=== PATIENT | female | born 1940 | race Caucasian/White ===

== ENCOUNTER 2023-05-02 03:18 | Inpatient (IN) | payer OTHER, SELFPAY ==
[2023-05-02] VITALS (14 sets, daily range): BP systolic 109–159; BP diastolic 53–100; PULSE 85–90; BMI 27.0; BMI 28.4
[2023-05-02 01:40] LABS: Urine Albumin Negative (Neg - Trace); Urine Bilirubin Negative (Negative); Urine Character Clear (Clear); Urine Color Yellow; Urine Glucose Trace (Negative); Urine Ketone Negative (Negative); Urine Leukocyte Negative (Negative); Urine Nitrite Negative (Negative); Urine Occult Blood Negative (Negative); Urine Urobilinogen Negative (Neg - 1+)
[2023-05-02 01:43] LABS: % Basophils 0.3 % (0-2); % Eosinophils 0.1 % (0-6); % Immature Granulocytes 0.8 % (0-0.5); % Lymphocytes 4.2 % (20.5-51.1); % Monocytes 8.7 % (1.7-9.3); % Neutrophils 85.9 % (42.2-75.2); Absolute Immature Granulocytes 0.1 10^3/uL (0-0.05); Absolute Lymphocytes 0.6 10^3/uL (1.2-3.4); Absolute Monocytes 1.2 10^3/uL (0.1-0.6); Absolute Neutrophils 11.8 10^3/uL (1.4-6.5); Hematocrit 37.1 % (37.0-47.0); Hemoglobin 13.8 g/dL (12.0-16.0); Mean Corp Hgb Conc. 37.2 g/dL (33.0-37.0); Mean Corpuscular Hgb 31.5 pg (27.0-31.0); Mean Corpuscular Volume 84.7 fL (81.0-99.0); Mean Platelet Volume 9.9 fL (7.4-10.4); Nucleated Red Blood Cells % 0 %; Platelet Count 247 10^3/uL (130-400); Red Blood Cell Count 4.38 10^6/uL (4.20-5.40); Red Cell Dist. Width 12.9 % (11.5-14.5); White Blood Cell Count 13.7 10^3/uL (4.8-10.8)
[2023-05-02 01:56] LABS: ALT (SGPT) 22 U/L (0-35); AST (SGOT) 31 U/L (14-36); Albumin 3.4 g/dl (3.5-5.0); Alkaline Phosphatase 79 U/L (38-126); Blood Urea Nitrogen 35 mg/dl (7-17); Calcium 10.1 mg/dl (8.4-10.2); Carbon Dioxide 33 mmol/L (22-30); Chloride 81 mmol/L (98-107); Estimated Creatinine Clearance 54 ml/min; Glucose 240 mg/dl (70-99); Potassium 3.4 mmol/L (3.5-5.1); Sodium 121 mmol/L (135-145); Total Bilirubin 1.3 mg/dl (0.2-1.3); Total Protein 6.3 g/dl (6.3-8.2); eGFR > 60.00
[2023-05-02 02:08] LABS: Troponin I 0.014 ng/ml
--- NOTE | 2023-05-02 02:23 | ED.GENMED ---
History of Present Illness
General
Chief Complaint: Weakness
Source: patient and spouse
Exam Limitations: none
Time Seen by Provider: 05/02/23 02:13
Travel History
Have you had any contact with someone who has COVID-19?: No
Do you have any symptoms of coronavirus? Fever > 100 degrees, chills, cough, shortness of breath, sore throat, loss of taste or smell, muscle aches, or headache?: No
History of Present Illness
History of Present Illness:
See MDM
Past History
Past History
ED Past Medical History: Arrthythmia (Atrial fibrillation), CAD, Cancer, GERD, HTN, Hypercholesterolemia, NIDDM, Hypothyroidism, Other (Degenerative disc disease, restless leg syndrome, gout, hyperactive bladder, pulmonary hypertension, benign
positional vertigo, and NSTEMI, cataracts) and Other (Lower GI bleed with ischemic colitis)
ED Past Surgical History: Brain and Cardiac
Social History
Tobacco: Non-smoker
Alcohol: None
Drug: None
Personal:
Living: with family
Employment: Retired
Family History
Family History: Other (Noncontributory)
Phy Exam
Physical Exam
Physical Exam:
See MDM
Course
Orders/Labs/Results
Orders:
Orders
05/02/23 01:25
EKG [Electrocardiogram (*1)] Urgent
Reason for Study: Fatigue / Weakness
05/02/23 01:26
EKG- Treatment ONCE
05/02/23 01:28
Urinalysis Reflex To Culture Urgent
Date Specimen was Collected: 05/02/23
Time Specimen was Collected: 01:26
05/02/23 01:30
Complete Blood Count/With Diff Urgent
Comprehensive Metabolic Panel Urgent
05/02/23 01:33
Troponin I Urgent
05/02/23 02:25
Add On- LAB Urgent
Tests Added?: Urine Na, Urine Osm
0.9% Sodium Chloride 1000 ml [Nss] 1,000 ml IV BOLUS
Abnormal Lab Results
05/02/23 05/02/23
01: 01:30
WBC 13.7 H 10^3/uL
(4.8-10.8)
MCH 31.5 H pg
(27.0-31.0)
MCHC 37.2 H g/dL
(33.0-37.0)
Abs Immat Gran (auto) 0.1 H 10^3/uL
(0-0.05)
Absolute Neuts (auto) 11.8 H 10^3/uL
(1.4-6.5)
Absolute Lymphs (auto) 0.6 L 10^3/uL
(1.2-3.4)
Absolute Monos (auto) 1.2 H 10^3/uL
(0.1-0.6)
Immature Gran % 0.8 H %
(0-0.5)
Neutrophils % 85.9 H %
(42.2-75.2)
Lymphocytes % 4.2 L %
(20.5-51.1)
Sodium 121 L mmol/L
(135-145)
Potassium 3.4 L mmol/L
(3.5-5.1)
Chloride 81 L mmol/L
(98-107)
Carbon Dioxide 33 H mmol/L
(22-30)
BUN 35 H mg/dl
(7-17)
Glucose 240 H mg/dl
(70-99)
Albumin 3.4 L g/dl
(3.5-5.0)
Urine Glucose Trace A
(Negative)
05/02/23 01:30
05/02/23 01:30
Vital Signs
Initial and Last Documented VS:
Initial Vital Signs
BP
159/91
05/02/23 01:07
Last Documented Vital Signs
Temp Pulse Resp BP Pulse Ox
97.6 F 79 14 159/91 97
05/02/23 01:12 05/02/23 02:00 05/02/23 02:00 05/02/23 01:12 05/02/23 02:00
MDM/Problems Addressed
Differential Diagnosis Includes:
HPI and MDM Narrative:
82-year-old female presenting for evaluation of generalized weakness and fatigue. Her spouse at bedside states this has been ongoing for the past several days to weeks. He is concerned about possible UTI.
Patient sitting in bed comfortably. She does appear somewhat confused. There is no evidence of trauma. Patient is clinically dehydrated. Patient found to have sodium level of 121. Given evidence of dehydration, will hydrate with normal saline
Physical exam
General: Weak and fatigued
HEENT: protecting airway. Dry mucous membranes
Neck: appears supple
CV: No evidence of cyanosis. Regular rate, irregular rhythm
Resp: No accessory muscle use
Abd: Non-distended
Extremities: No deformities
Neuro: alert
Psych: Normal affect
Skin: Intact
Problems Addressed including Acute and Chronic Conditions affecting care:
1. Hyponatremia
Acuity: acute
Prognosis: unstable
Details: Likely in the setting of dehydration. Given that she is clinically dehydrated, will start IV fluid
Updates
Differential Diagnosis (but not limited to): UTI, dehydration
Testing considered: CT head but no trauma noted
Drug therapy (if applicable): OTC meds, please see d/c instruction regarding Rx drugs
Amount and/or Complexity of Data Reviewed
Clinical info obtained from: Patient
External data reviewed: N/A
Labs I independently reviewed (but not limited to): Sodium 121
Radiology: N/A
Pulse Ox: not hypoxic
EKG independently reviewed: A-fib, normal axis, no STEMI
Safety Consultant: Sinus rhythm
Critical Care: N/A
Risk of Complication:
Social Determinants of health: Good social support
Discussed with other providers: N/A
Escalation of Care includes Admit/Obs: Given the dehydration and hyponatremia, will admit
Occasional wrong word or 'sound a like' substitutions may have occurred due to the inherent limitations of voice recognition software. Read the chart carefully and recognize, using context, where substitutions have occurred.
*Critical Care Note
Total Time (30-74mins, 75-104mins- exclusive of procedures): Not Applicable
ED Attending Note
-
Portions of this chart may have been created with voice recognition software.� Occasional wrong word or��sound alike� substitutions may have occurred due to the inherent limitations of voice recognition software.
Discharge Plan
Departure
Patient Disposition: Admit
Date of Disposition: 05/02/23
Time of Disposition: 02:30
Admit to: Telemetry
Presentation/result/management discussed w/ accepting MD/DO: Hospitalist
Discharge Problem:
Hypokalemia, Acute hyponatremia, Hypovolemia
Prescriptions:
No Action
lisinopril 20 MG tablet
40 mg PO DAILY
famotidine 40 MG tablet
40 mg PO HS
warfarin [Jantoven] 2.5 MG tablet
2.5 mg PO SUMOWEFRSA
warfarin [Jantoven] 1.25 MG tablet
1.25 mg PO TUTH
potassium chloride [Klor-Con M20] 20 MEQ tablet,ER particles/crystals
20 meq PO DAILY@1200
levothyroxine 50 MCG tablet
50 mcg PO DAILY
cephalexin 500 MG capsule
500 mg PO TID
hydrochlorothiazide 25 MG tablet
25 mg PO DAILY
cholecalciferol (vitamin D3) 1,000 UNITS tablet
1,000 units PO BID
Lactobac 2-Bifido 1-S. therm [High Potency Probiotic] 1 CAP capsule
1 cap PO DAILY@1200
multivitamin with folic acid [Tab-A-Sadaf] 1 TABLET tablet
1 tab PO DAILY@1200
vit C,R-Qg-qfqym-lutein-zeaxan [PreserVision AREDS-2] 1 EACH capsule
1 cap PO BID
metoprolol succinate 50 MG tablet extended release 24 hr
50 mg PO BID
digoxin 0.125 MG tablet
0.125 mg PO NOON
Referrals:
Rony Castillo MD [Family Provider] -
Interventions
Interventions:
*Risk Screen - Suicide Last Done: 05/02/23 01:12
*General Assessment Last Done: 05/02/23 01:12
*Neglect/Abuse Screening Last Done: 05/02/23 01:12
ED- Fall Risk Assessment Last Done: 05/02/23 01:12
*ED COVID-19 Vaccine History Last Done: 05/02/23 01:12
ED- Cardiac Assessment Last Done: 05/02/23 01:12
ED- Neurological Assessment Last Done: 05/02/23 01:12
ED- Pulmonary Assessment Last Done: 05/02/23 01:12
--- NOTE | 2023-05-02 02:58 | HPS.HSE ---
Family Physician
-
Family Physician: Rony Castillo
Chief Complaint
-
Weakness
History of Present Illness
Patient is an 82y F with PMH significant for A-Fib, hypertension and hypothyroidism who presents to ED for evaluation of weakness and fatigue. History obtained from patient and discussion with ED staff. reported to ED staff that patient
has been more weak and fatigued for the past week or two. He is concerned with possible UTI. Patient evaluated in the ED where she is noted to have hyponatremia.
At the time of my examination, patient is resting comfortably./ She appears somewhat confused and cannot recall precisely why she is here. She denies any current pain, chest pain, dyspnea, etc.
External record reviewed with patient. She confirms that she was started on Cipro on 04/29 - also for concerns for possible UTI. She states that she has also been 'drinking a lot of water' as directed by her PCP. She cannot quantify how much water
she has been drinking.
Patient also had similar presentation in March of this year and was similarly prescribed abx and advised to 'push fluids'.
Medical History
Past Medical History
Past Medical History: Reports Other
Additional Past Medical History:
Permanent Atrial Fibrillation
Hypertension
DM-II, Diet-Controlled
CKD II
Subdural Hematoma
ASCVD
Pulmonary Hypertension
Past Surgical History: Reports Other
Additional Past Surgical History:
Tubal Ligation
Appendectomy
PVI Ablation
DCCV
Retina repair
Cataracts
Social History
Tobacco: Non-smoker
Alcohol: None
Drug: None
Family History
Family History: Not pertinent
Allergies / Home Medications
Allergies reflects when Allergies were last updated in [facility].
Home Medications with original date entered in [facility]
Allergy/Medication List:
Allergies
Allergy/AdvReac Type Severity Reaction Status Date / Time
No Known Allergies Allergy Verified 05/02/23 01:11
Home Medications
Lactobac no.2-Bifidobac no.1-S. thermo 112.5 billion cell capsule (High Potency Probiotic) 1 cap PO DAILY@1200 Gastrointestinal issue 08/03/20
digoxin 125 mcg (0.125 mg) tablet 0.125 mg PO NOON Heart disease/condition 08/03/20
famotidine 40 mg tablet 40 mg PO HS Gastrointestinal issue 08/03/20
hydrochlorothiazide 25 mg tablet 25 mg PO DAILY Blood pressure 08/03/20
levothyroxine 50 mcg tablet 50 mcg PO DAILY Thyroid 08/03/20
metoprolol succinate 50 mg tablet,extended release 24 hr 50 mg PO BID Heart disease/condition 08/03/20
potassium chloride 20 mEq tablet,extended release(part/cryst) (Klor-Con M) 20 meq PO DAILY@1200 Electrolyte Repletion 08/03/20
vit C 250 mg-vit E 90 mg-zinc 40 mg-copper 1 bh-lplwxe-bqifxe capsule (PreserVision AREDS-2) 1 cap PO BID Supplement 08/03/20
apixaban 5 mg tablet (Eliquis) 5 mg PO BID 05/02/23
cholecalciferol (vitamin D3) 50 mcg (2,000 unit) tablet 50 mcg PO DAILY 05/02/23
ciprofloxacin HCl 500 mg tablet (Cipro) 500 mg PO BID 05/02/23
lisinopril 40 mg tablet 40 mg PO DAILY 05/02/23
Review of Systems
-
History Source: Patient
A 12 point ROS was completed and negative except as noted: Yes
Constitutional: Reports Fatigue; Denies Fever or Chills
Respiratory: Denies Cough or Trouble Breathing
Cardiac: Denies Chest Pain or Palpitations
Abdomen/GI: Denies Abdominal Pain, Nausea, Vomiting or Diarrhea
: Denies Dysuria, Frequency, Flank Pain or Incontinence
Neurological: Denies Dizzy or Headache
Psych: Denies Depression or Anxiety
Physical Exam
Vital Signs
Vital Signs
Temp Pulse Resp BP Pulse Ox
97.6 F 79 14 159/91 97
05/02/23 01:12 05/02/23 02:00 05/02/23 02:00 05/02/23 01:12 05/02/23 02:00
Physical Exam
General: Other (82y F in no acute distress.)
HEENT: Moist mucous membranes and PERRLA
Respiratory: Clear; No Wheezes, Rales or Rhonchi
Cardiac: S1/S2 and Irregular Rhythm; No Murmur
GI: Soft, Non Tender, Non Distended and Normal Bowel Sounds
Musculoskeletal: No Clubbing, No Cyanosis and No Edema
Skin: Other (Chronic venous stasis skin changes b/l LEs.)
Neuro: Awake and Alert
Psych: Apparent Dementia
Laboratory Results
-
05/02/23 01:30
05/02/23 01:30
Laboratory Results
Total Bilirubin 1.3 mg/dl (0.2-1.3) 05/02/23 01:30
AST 31 U/L (14-36) 05/02/23 01:30
ALT 22 U/L (0-35) 05/02/23 01:30
Alkaline Phosphatase 79 U/L (38-126) 05/02/23 01:30
Troponin I 0.014 ng/ml 05/02/23 01:33
Impression/Plan
-
A/P: Patient is an 82y F with PMH significant for hypertension, A-Fib, DM and hypothyroidism who presents to ED for evaluation of generalized weakness and fatigue.
Hyponatremia
- Admit for further evaluation and treatment.
- Na on admission is 121 with vague symptoms of weakness / fatigue.
- Suspect this is secondary to combination of thiazide diuretic and recent increase in water intake.
- Hold HCTZ and would consider complete cessation.
- Fluid restrict.
- Follow for improvement in Na levels and for improvement in mentation / fatigue.
- Follow-up urine studies to confirm.
- Nephrology evaluation.
- Check TFTs, cortisol, etc.
Weakness / Fatigue
Confusion
- Follow for improvement coincident with Na correction as noted above.
- Suspicious of underlying dementia diagnosis here - especially with multiple UTI diagnoses for generalized weakness in the past 2 months.
- Hold further abx for now. UA today is unremarkable. Monitor for any specific urinary complaints.
Permanent Atrial Fibrillation
- Stable. Rate controlled on current regimen.
- Continue Toprol with holding parameters. Continue Digoxin.
- Continue Eliquis for stroke risk reduction.
DM-II
- Glucose somewhat elevated on initial labs. Patient not on any DM medications at present.
- Follow glucose and cover with SSI as needed.
- Update A1C.
Hypothyroidism
- Check TFTs to ensure current replacement dose is appropriate.
Mild Hypokalemia
- Also likely secondary to HCTZ.
- Continue PO replacement for now.
- Consider cessation of HCTZ and KCl moving forward.
DVT Prophylaxis: On Eliquis
Code Status: Full
[2023-05-02 03:49] LABS: Urine Sodium 17 mmol/L (30-90)
[2023-05-02 04:43] LABS: Osmolality Urine 346 mOsm/kg (300-900)
[2023-05-02] MEDS: SYNTHROID 50 MCG PO (05:51)
[2023-05-02 07:20] LABS: Glucose - Point of Care 229 mg/dl (70-99)
[2023-05-02] MEDS: VITAMIN D3 (cholecalciferol) 50 MCG PO (08:18)
[2023-05-02] MEDS: ELIQUIS 5 MG PO ×2 (08:18→20:20)
[2023-05-02] MEDS: ZESTRIL 40 MG PO (08:18)
[2023-05-02] MEDS: TOPROL XL 50 MG PO (08:19)
[2023-05-02 08:24] LABS: Hematocrit 34.4 % (37.0-47.0); Hemoglobin 12.8 g/dL (12.0-16.0); Mean Corp Hgb Conc. 37.2 g/dL (33.0-37.0); Mean Corpuscular Hgb 31.8 pg (27.0-31.0); Mean Corpuscular Volume 85.4 fL (81.0-99.0); Mean Platelet Volume 10.3 fL (7.4-10.4); Platelet Count 251 10^3/uL (130-400); Red Blood Cell Count 4.03 10^6/uL (4.20-5.40); Red Cell Dist. Width 13.1 % (11.5-14.5); White Blood Cell Count 11.7 10^3/uL (4.8-10.8)
[2023-05-02 09:02] LABS: Blood Urea Nitrogen 27 mg/dl (7-17); Calcium 9.2 mg/dl (8.4-10.2); Carbon Dioxide 32 mmol/L (22-30); Chloride 85 mmol/L (98-107); Estimated Creatinine Clearance 65 ml/min; Glucose 177 mg/dl (70-99); Sodium 122 mmol/L (135-145); eGFR > 60.00
[2023-05-02 09:22] LABS: Cortisol, Random 24.2 ug/dl; TSH Reflex To Free T4 2.53 uIU/ml (0.47-4.68)
[2023-05-02] MEDS: NOVOLOG FLEXPEN-LOW RESISTANCE 2 UNITS SC ×2 (09:40→13:31)
--- NOTE | 2023-05-02 10:26 | W.PN.HOSP.TC ---
Today's Communication/Plan
-
see A/P
Assessment / Plan
Assessment / Plan
HPI:�82y F with PMH significant for A-Fib, hypertension, hypothyroidism who p/w weakness and fatigue.�
reported to ED staff that patient has been more weak and fatigued for the past week or two.�He is concerned with possible UTI.� Patient evaluated in the ED where she is noted to have hyponatremia.�
She appeared somewhat confused on admission and cannot recall precisely why she was here at .
External record reviewed with patient.� She confirms that she was started on Cipro on 04/29 - also for concerns for possible UTI.� She states that she has also been 'drinking a lot of water' as directed by her PCP.� She cannot quantify how much water
she has been drinking.
Patient also had similar presentation in March of this year and was similarly prescribed abx and advised to 'push fluids'.
A/P:
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
Na on admission is 121 with vague symptoms of weakness / fatigue.
Suspect this is secondary to combination of thiazide diuretic and recent increase in water intake.
Hold HCTZ and would consider complete cessation.
Fluid restrict.
Follow for improvement in Na levels and for improvement in mentation / fatigue.
Nephrology evaluation.
TSH 2.53, random cortisol level 24
# Weakness / Fatigue
# Confusion with likely underlying cognitive impairment vs dementia
Follow for improvement coincident with Na correction as noted above.
Suspicious of underlying dementia diagnosis here - especially with multiple UTI diagnoses for generalized weakness in the past 2 months.
Pt is slow to respond to questions, she is awake, knows the year, but does not know which month we are in.
Hold further abx for now.�UA from admission is unremarkable.�
Monitor for any specific urinary complaints.
# Hypokalemia
replete and check Mag level
CORPSMAN HCTZ not resumed
# Permanent Atrial Fibrillation�- Stable.�
Episodic bradycardia noted on tele, hold [employer]PSMAN Toprol
Continue Digoxin. Check digoxin level
Continue Eliquis for stroke risk reduction.
# DM-II
Glucose elevated.�
Patient not on any DM medications at present.
Cover with SSI as needed.
Follow A1C.
# Hypothyroidism
TSH at 2.53
Cont Synthroid
DVT Prophylaxis:�On Eliquis
Code Status:� Full
PT OT eval for weakness
updated on the phone
Anticipated Discharge: 24 - 48 hours
Subjective/Interval History
-
Date of Service: May 02, 2023
Objective Data
-
Labs:
Laboratory Results
05/02/23 05/02/23
01:30 06:52
WBC 13.7 H 11.7 H
Hgb 13.8 12.8
Hct 37.1 34.4 L
Plt Count 247 251
Sodium 121 L 122 L
Potassium 3.4 L 3.0 L
Chloride 81 L 85 L
Carbon Dioxide 33 H 32 H
BUN 35 H 27 H
Creatinine 0.8 0.7
Glucose 240 H 177 H
Calcium 10.1 9.2
Total Bilirubin 1.3
AST 31
ALT 22
Alkaline Phosphatase 79
Vital Signs:
Vital Signs
Temp Pulse Resp BP Pulse Ox
36.7 C 65 18 109/53 100
05/02/23 07:10 05/02/23 08:19 05/02/23 07:10 05/02/23 08:19 05/02/23 07:10
I&O
05/01/23 05/02/23 05/03/23
06:59 06:59 06:59
Intake Total 240 / 240
Output Total 300 / 300
Balance -60 / -60
Review of Systems
-
All other systems: Reviewed and negative
Physical Exam
-
General: Well Developed, Well Nourished, No Apparent Distress, Comfortable and Conversant; Negative Respiratory Distress
HEENT: Normocephalic, Atraumatic, Nose Appears Normal and Ears Appear Normal; Negative Oxygen
Respiratory: Clear to Auscultation and Non Labored Respirations; Negative Accessory Resp Muscle Use
Cardiac: S1/S2 and Irregular Rhythm
GI: Soft, Nontender, Nondistended and Normal Bowel Sounds
Skin: Warm and Dry
Neuro: Awake and Alert
Psych: Calm
Data Reviewed
-
Labs: Labs Reviewed by me
[2023-05-02] MEDS: KCL 40 MEQ PO (10:58)
[2023-05-02 11:08] LABS: Digoxin 0.6 ng/ml (0.8-2.0); Magnesium 1.6 mg/dl (1.6-2.3)
[2023-05-02 11:10] LABS: Glycohemoglobin (HgbA1c) 8.2 % (4.0-5.6)
[2023-05-02 11:20] LABS: Osmolality Urine 280 mOsm/kg (300-900)
[2023-05-02 11:26] LABS: Urine Sodium 32 mmol/L (30-90)
[2023-05-02 12:23] LABS: Glucose - Point of Care 235 mg/dl (70-99)
[2023-05-02] MEDS: LANOXIN 125 MCG PO (12:43)
[2023-05-02] MEDS: KCL 20 MEQ PO (12:43)
--- NOTE | 2023-05-02 12:56 | W.CON.NEPH ---
Consultation
-
Date/Time Consultation Requested: 05/02/23 0430
Date/Time Consultation Performed: 05/02/23 1245
Requesting Provider: Carlo Zafar
Performing Provider: Aby Kennedy
Reason for Consultation: Hyponatremia
Medical History
-
Chief Complaint: Gen weakness
History of Present Illness:
82y F with PMH significant for A-Fib on Dig, Eliquis, BB, hypertension o n HCTZ, lisinopril and hypothyroidism on Levothyroxine who presents to ED for evaluation of weakness and fatigue on 05/01.� History obtained from at bedside.�
According to him pt feeling weak for more than 3weeks and has seen PCP,, recently working her for UTI. Urine cx sent few days ago and started on Cipro. She was asked to drink more liquids. He found her more weak yesterday and could not get up on her
own, also confused too hence brought to the hospital. She denies any current pain, chest pain, dyspnea, etc. note she has chronic hypokalemia on po kcl.
Patient also had similar presentation in March of this year and was similarly prescribed abx and advised to 'push fluids'.
labs in ER showed sodium of 1221, with FR and bolus of NS 1lit sodium remains low at 122.
Past Medical History
Permanent Atrial Fibrillation
Hypertension
DM-II, Diet-Controlled
Subdural Hematoma
ASCVD
Pulmonary Hypertension
Social History
Tubal Ligation
Appendectomy
PVI Ablation
DCCV
Retina repair
Cataracts
Tobacco: Non-Smoker
Alcohol: None
Living: With Family
Family History
Family History: Not Pertinent
Allergies / Home Medications
Allergy/AdvReac Type Severity Reaction Status Date / Time
No Known Allergies Allergy Verified 05/02/23 01:11
Medication Instructions Recorded Confirmed Type
Lactobac no.2-Bifidobac no.1-S. 1 cap PO DAILY@1200 08/03/20 05/02/23 History
thermo 112.5 billion cell capsule Gastrointestinal issue
(High Potency Probiotic)
digoxin 125 mcg (0.125 mg) tablet 0.125 mg PO NOON Heart 08/03/20 05/02/23 History
disease/condition
famotidine 40 mg tablet 40 mg PO HS Gastrointestinal issue 08/03/20 05/02/23 History
hydrochlorothiazide 25 mg tablet 25 mg PO DAILY Blood pressure 08/03/20 05/02/23 History
levothyroxine 50 mcg tablet 50 mcg PO DAILY Thyroid 08/03/20 05/02/23 History
metoprolol succinate 50 mg 50 mg PO BID Heart 08/03/20 05/02/23 History
tablet,extended release 24 hr disease/condition
potassium chloride 20 mEq 20 meq PO DAILY@1200 Electrolyte 08/03/20 05/02/23 History
tablet,extended Repletion
release(part/cryst) (Klor-Con M)
vit C 250 mg-vit E 90 mg-zinc 40 1 cap PO BID Supplement 08/03/20 05/02/23 History
mg-copper 1 [id number]
capsule (PreserVision AREDS-2)
apixaban 5 mg tablet (Eliquis) 5 mg PO BID 05/02/23 05/02/23 History
cholecalciferol (vitamin D3) 50 50 mcg PO DAILY 05/02/23 05/02/23 History
mcg (2,000 unit) tablet
ciprofloxacin HCl 500 mg tablet 500 mg PO BID 05/02/23 05/02/23 History
(Cipro)
lisinopril 40 mg tablet 40 mg PO DAILY 05/02/23 05/02/23 History
Review of Systems
-
unable to obtain as pt is ocnfused
Physical Exam
Vital Signs
Vital Signs
Temp Pulse Resp BP Pulse Ox
97.7 F 68 18 109/53 98
05/02/23 11:00 02/24/24 12:43 05/02/23 11:00 05/02/23 08:19 05/02/23 11:00
Lab Results
WBC 11.7 10^3/uL (4.8-10.8) H 05/02/23 06:52
RBC 4.03 10^6/uL (4.20-5.40) L 05/02/23 06:52
Hgb 12.8 g/dL (12.0-16.0) 05/02/23 06:52
Hct 34.4 % (37.0-47.0) L 05/02/23 06:52
Plt Count 251 10^3/uL (130-400) 05/02/23 06:52
Sodium 122 mmol/L (135-145) L 05/02/23 06:52
Potassium 3.0 mmol/L (3.5-5.1) L 05/02/23 06:52
Chloride 85 mmol/L (98-107) L 05/02/23 06:52
Carbon Dioxide 32 mmol/L (22-30) H 05/02/23 06:52
BUN 27 mg/dl (7-17) H 05/02/23 06:52
Creatinine 0.7 mg/dL (0.6-1.0) 05/02/23 06:52
eGFR > 60.00 05/02/23 06:52
Glucose 177 mg/dl (70-99) H 05/02/23 06:52
Calcium 9.2 mg/dl (8.4-10.2) 05/02/23 06:52
Albumin 3.4 g/dl (3.5-5.0) L 05/02/23 01:30
Physical Exam
General: Awake, Alert and No Distress
HEENT: EOMI and Anicteric
Respiratory: Clear and Normal Excursion
Cardiac: S1/S2 and Regular Rate/Rhythm
Abdomen: Soft, Nontender and Nondistended
Musculoskeletal: No Cyanosis, No Edema and Other (right index finger has cut [id number] it is from from washing dishes)
Skin: No Rash
Neuro: Nonfocal/Grossly Intact
Psych: Other (confused)
Assessment/Plan
-
IMP:
Hyponatremia-acute on chr
Weakness / Fatigue
Confusion
Permanent Atrial Fibrillation
DM-II
Hypothyroidism
Mild Hypokalemia
h/o Subdural Hematoma
ASCVD
Pulmonary Hypertension
Plan:
A/w with gen weakness found hyponatremia 121
suspect acute on chr, her sodium before was low in 132 in 2020
multifactorial in etiology high ADH state U osmo 346 and U na 17
poor solute intake, high free water intake, HCTZ
TSH and cortisol were ok
hold thiazide indefinitely
will start 3% saline and check sodium q4hrs
BP are low normal, holding Bp meds
hypokalemia-replace, check tonight
mild met alkalosis likely from HCTZ-monitor
d/w at bedside in detail
Data Reviewed
-
Radiology: Report Reviewed by me
Labs: Labs Reviewed by me
[2023-05-02 13:31] LABS: Sodium 122 mmol/L (135-145)
[2023-05-02] MEDS: SODIUM CHLORIDE 3% 250 IV ×2 (13:32→23:36)
[2023-05-02] MEDS: MAGNESIUM SULFATE 50 IV (16:36)
[2023-05-02 17:19] LABS: Sodium 121 mmol/L (135-145)
[2023-05-02 17:23] LABS: Glucose - Point of Care 191 mg/dl (70-99)
[2023-05-02] MEDS: NOVOLOG FLEXPEN-LOW RESISTANCE 1 UNITS SC (17:23)
[2023-05-02 21:27] LABS: Glucose - Point of Care 211 mg/dl (70-99)
[2023-05-02] MEDS: PEPCID 40 MG PO (21:39)
[2023-05-02 21:47] LABS: Potassium 3.7 mmol/L (3.5-5.1); Sodium 125 mmol/L (135-145)
[2023-05-03] VITALS (7 sets, daily range): BP systolic 105–176; BP diastolic 58–87; PULSE 85–90; O2SAT 97; BMI 28.0
[2023-05-03 01:45] LABS: Sodium 127 mmol/L (135-145)
[2023-05-03 05:24] LABS: Hematocrit 33.3 % (37.0-47.0); Hemoglobin 12.3 g/dL (12.0-16.0); Mean Corp Hgb Conc. 36.9 g/dL (33.0-37.0); Mean Corpuscular Hgb 31.7 pg (27.0-31.0); Mean Corpuscular Volume 85.8 fL (81.0-99.0); Mean Platelet Volume 9.6 fL (7.4-10.4); Platelet Count 232 10^3/uL (130-400); Red Blood Cell Count 3.88 10^6/uL (4.20-5.40); Red Cell Dist. Width 12.9 % (11.5-14.5); White Blood Cell Count 8.3 10^3/uL (4.8-10.8)
[2023-05-03 05:33] LABS: Blood Urea Nitrogen 22 mg/dl (7-17); Calcium 9.3 mg/dl (8.4-10.2); Carbon Dioxide 30 mmol/L (22-30); Chloride 95 mmol/L (98-107); Estimated Creatinine Clearance 76 ml/min; Glucose 175 mg/dl (70-99); Potassium 3.7 mmol/L (3.5-5.1); Sodium 130 mmol/L (135-145); eGFR > 60.00
[2023-05-03] MEDS: SYNTHROID 50 MCG PO (06:13)
[2023-05-03 07:32] LABS: Glucose - Point of Care 173 mg/dl (70-99)
[2023-05-03] MEDS: NOVOLOG FLEXPEN-LOW RESISTANCE 1 UNITS SC (08:34)
[2023-05-03] MEDS: VITAMIN D3 (cholecalciferol) 50 MCG PO (08:35)
[2023-05-03] MEDS: ELIQUIS 5 MG PO ×2 (08:36→20:27)
[2023-05-03] MEDS: ZESTRIL 40 MG PO (08:36)
--- NOTE | 2023-05-03 10:06 | W.PN.HOSP.TC ---
Today's Communication/Plan
-
see AP
Assessment / Plan
Assessment / Plan
HPI:�82y F with PMH significant for A-Fib, hypertension, hypothyroidism who p/w weakness and fatigue.�
reported to ED staff that patient has been more weak and fatigued for the past week or two.�He is concerned with possible UTI.� Patient evaluated in the ED where she is noted to have hyponatremia.�
She appeared somewhat confused on admission and cannot recall precisely why she was here at .
External record reviewed with patient.� She confirms that she was started on Cipro on 04/29 - also for concerns for possible UTI.� She states that she has also been 'drinking a lot of water' as directed by her PCP.� She cannot quantify how much water
she has been drinking.
Patient also had similar presentation in March of this year and was similarly prescribed abx and advised to 'push fluids'.
A/P:
# Hyponatremia, acute on chronic, suspect this is secondary to combination of thiazide diuretic, recent increase in water intake, and SIADH
Sodium level has improved from 121 to 130
Hold HCTZ and would completely discontinue upon discharge.
Cont fluid restrict.
Follow for improvement in Na levels and for improvement in mentation / fatigue.
Nephrology on board
TSH 2.53, random cortisol level 24
# Weakness / Fatigue
# Confusion with likely underlying cognitive impairment vs dementia
Follow for improvement coincident with Na correction as noted above.
Suspicious of underlying dementia diagnosis here - especially with multiple UTI diagnoses for generalized weakness in the past 2 months.
Pt is slow to respond to questions, she is awake, knows the year, but does not know which month we are in.
Hold further abx for now.�UA from admission is unremarkable.�
Monitor for any specific urinary complaints.
# Hypokalemia
repleted
MILK SAMPLER HCTZ not resumed
# Permanent Atrial Fibrillation�- Stable.�
Episodic bradycardia noted on tele, hold MILK SAMPLER Toprol
Continue Digoxin. Digoxin level 0.6
Continue Eliquis for stroke risk reduction.
# DM-II
Glucose elevated.�
Patient not on any DM medications at present.
Cover with SSI as needed.
Follow A1C.
# Hypothyroidism
TSH at 2.53
Cont Synthroid
DVT Prophylaxis:�On Eliquis
Code Status:� Full
PT OT recc SNF
updated on the phone [phone]
Anticipated Discharge: Within 24 hours
Subjective/Interval History
-
Date of Service: May 03, 2023
Objective Data
-
Labs:
Laboratory Results
05/03/23 05/03/23 05/03/23
01:20 05:11 05:11
WBC
Hgb
Hct
Plt Count
Sodium 127 L 130 L Cancelled
Potassium 3.7
Chloride 95 L
Carbon Dioxide 30
BUN 22 H
Creatinine 0.5 L
Glucose 175 H
Calcium 9.3
05/03/23 05/03/23
05:12 09:00
WBC 8.3
Hgb 12.3
Hct 33.3 L
Plt Count 232
Sodium Cancelled
Potassium
Chloride
Carbon Dioxide
BUN
Creatinine
Glucose
Calcium
Vital Signs:
Vital Signs
Temp Pulse Resp BP Pulse Ox
36.6 C 70 16 134/58 100
05/03/23 07:45 05/03/23 08:36 05/03/23 07:45 05/03/23 08:36 05/03/23 07:45
I&O
05/02/23 05/03/23 05/04/23
06:59 06:59 06:59
Intake Total 240 / 240 1120 / 1120
Output Total 300 / 300 450 / 450
Balance -60 / -60 670 / 670
Review of Systems
-
All other systems: Reviewed and negative
Physical Exam
-
General: Well Developed, Well Nourished, No Apparent Distress, Comfortable and Conversant; Negative Respiratory Distress
HEENT: Normocephalic, Atraumatic, Nose Appears Normal and Ears Appear Normal; Negative Oxygen
Respiratory: Clear to Auscultation and Non Labored Respirations; Negative Accessory Resp Muscle Use
Cardiac: S1/S2 and Irregular Rhythm
GI: Soft, Nontender, Nondistended and Normal Bowel Sounds
Skin: Warm and Dry
Neuro: Awake and Alert
Psych: Calm
Data Reviewed
-
Labs: Labs Reviewed by me
[2023-05-03] MEDS: LANOXIN 125 MCG PO (11:13)
[2023-05-03] MEDS: KCL 20 MEQ PO (11:29)
[2023-05-03 12:01] LABS: Glucose - Point of Care 203 mg/dl (70-99)
[2023-05-03] MEDS: NOVOLOG FLEXPEN-LOW RESISTANCE 2 UNITS SC ×2 (12:50→17:14)
--- NOTE | 2023-05-03 15:45 | W.PN.NEPH.PH ---
Today's Communication / Plan
-
add salt tab
Assessment/Plan
-
IMP:
Hyponatremia-acute on chr
Weakness / Fatigue
Confusion
Permanent Atrial Fibrillation
DM-II
Hypothyroidism
Mild Hypokalemia
h/o Subdural Hematoma
ASCVD
Pulmonary Hypertension
Plan:
A/w with gen weakness found hyponatremia 121
suspect acute on chr, her sodium before was low in 132 in 2020
multifactorial in etiology high ADH state U osmo 346 and U na 17
poor solute intake, high free water intake, HCTZ
TSH and cortisol were ok
hold thiazide indefinitely
sodium better post 3% saline
will add salt tab and cont FR 48ounces/day
BP stable, holding Bp meds
hypokalemia-replace, check tonight
d/w at bedside in detail
upon d/c BMP in 3-4days with PCP
-
-
Date of Service: May 03, 2023
CC / HPI / ROS
-
Chief Complaint:
hyponatremia
History of Present Illness:
sodium better at 130 s/p 3% saline
Bp stable
no fever, not eating well due to recent dental procedure
Review of Systems:
no cp or sob
feels well, worked with PT recommend rehab
Labs
-
Labs:
WBC 8.3 10^3/uL (4.8-10.8) 05/03/23 05:12
RBC 3.88 10^6/uL (4.20-5.40) L 05/03/23 05:12
Hgb 12.3 g/dL (12.0-16.0) 05/03/23 05:12
Hct 33.3 % (37.0-47.0) L 05/03/23 05:12
Plt Count 232 10^3/uL (130-400) 05/03/23 05:12
Sodium Cancelled 05/03/23 09:00
Potassium 3.7 mmol/L (3.5-5.1) 05/03/23 05:11
Chloride 95 mmol/L (98-107) L 05/03/23 05:11
Carbon Dioxide 30 mmol/L (22-30) 05/03/23 05:11
BUN 22 mg/dl (7-17) H 05/03/23 05:11
Creatinine 0.5 mg/dL (0.6-1.0) L 05/03/23 05:11
eGFR > 60.00 05/03/23 05:11
Glucose 175 mg/dl (70-99) H 05/03/23 05:11
Calcium 9.3 mg/dl (8.4-10.2) 05/03/23 05:11
Albumin 3.4 g/dl (3.5-5.0) L 05/02/23 01:30
Physical Exam
-
Vital Signs:
Vital Signs
Temp Pulse Resp BP Pulse Ox
97.4 F 69 16 124/70 97
05/03/23 11:16 05/03/23 11:16 05/03/23 11:16 05/03/23 11:16 05/03/23 11:16
Cardiovascular:: Regular rate and rhythm
Respiratory:: Bilateral: CTA
Lung Excursion:: Normal
Abdomen:: Nontender and Soft
Extremity Edema:: None: Bilateral:
Ramirez Catheter: No
--- NOTE | 2023-05-03 16:03 | CM ---
Reviewed the chart notes and spoke with the patient and spouse at the bedside. IMM signed and placed on chart. Patient resides with spouse who is her caregiver in a split level home with one step to enter. Rolling walkers on each level, shower
chair that the patient does not use. The patient sponge bathes herself. The patient has been to [facility] in the past, but no SNF or VN. The patient's spouse anticipates discharge to a SNF. Referrals sent via [facility]. CM continues to be
available to patient/family and is monitoring medical plan for needs at discharge.
Plan: Discharge to SNF when bed found. Precert will required.
[2023-05-03 17:04] LABS: Glucose - Point of Care 210 mg/dl (70-99)
[2023-05-03] MEDS: PEPCID 40 MG PO (20:27)
[2023-05-03] MEDS: SODIUM CHLORIDE 0.5 GRAM PO (20:27)
[2023-05-03 21:27] LABS: Glucose - Point of Care 298 mg/dl (70-99)
[2023-05-04 05:34] VITALS: BMI 27.8
[2023-05-04 06:02] LABS: Hematocrit 38.8 % (37.0-47.0); Hemoglobin 13.7 g/dL (12.0-16.0); Mean Corp Hgb Conc. 35.3 g/dL (33.0-37.0); Mean Corpuscular Hgb 30.8 pg (27.0-31.0); Mean Corpuscular Volume 87.2 fL (81.0-99.0); Mean Platelet Volume 9.7 fL (7.4-10.4); Platelet Count 275 10^3/uL (130-400); Red Blood Cell Count 4.45 10^6/uL (4.20-5.40); Red Cell Dist. Width 13.3 % (11.5-14.5); White Blood Cell Count 9.8 10^3/uL (4.8-10.8)
[2023-05-04] MEDS: SYNTHROID 50 MCG PO (06:22)
[2023-05-04 06:29] LABS: Blood Urea Nitrogen 20 mg/dl (7-17); Calcium 9.8 mg/dl (8.4-10.2); Carbon Dioxide 32 mmol/L (22-30); Chloride 95 mmol/L (98-107); Estimated Creatinine Clearance 75 ml/min; Glucose 201 mg/dl (70-99); Magnesium 1.9 mg/dl (1.6-2.3); Potassium 3.6 mmol/L (3.5-5.1); Sodium 132 mmol/L (135-145); eGFR > 60.00
[2023-05-04 07:09] LABS: Glucose - Point of Care 200 mg/dl (70-99)
[2023-05-04 07:15] VITALS: BP 166/94; BP 176/151; PULSE 86; PULSE 88
[2023-05-04] MEDS: NOVOLOG FLEXPEN-LOW RESISTANCE 2 UNITS SC (09:00)
[2023-05-04] MEDS: VITAMIN D3 (cholecalciferol) 50 MCG PO (09:01)
[2023-05-04] MEDS: NORVASC 2.5 MG PO (09:01)
[2023-05-04] MEDS: ELIQUIS 5 MG PO (09:01)
[2023-05-04] MEDS: ZESTRIL 40 MG PO (09:01)
[2023-05-04] MEDS: SODIUM CHLORIDE 0.5 GRAM PO (09:02)
--- NOTE | 2023-05-04 09:50 | W.PN.HOSP.TC ---
Addendum entered and electronically signed by Anne Prado MD 05/04/23 13:59:
total DC time 40 min
Addendum entered and electronically signed by Anne Prado MD 05/04/23 10:51:
updated on the phone
Original Note:
Today's Communication/Plan
-
see A/P
Discharge planning to SNF
Assessment / Plan
Assessment / Plan
HPI:�82y F with PMH significant for A-Fib, hypertension, hypothyroidism who p/w weakness and fatigue.�
reported to ED staff that patient has been more weak and fatigued for the past week or two.�He is concerned with possible UTI.� Patient evaluated in the ED where she is noted to have hyponatremia.�
She appeared somewhat confused on admission and cannot recall precisely why she was here at .
External record reviewed with patient.� She confirms that she was started on Cipro on 04/29 - also for concerns for possible UTI.� She states that she has also been 'drinking a lot of water' as directed by her PCP.� She cannot quantify how much water
she has been drinking.
Patient also had similar presentation in March of this year and was similarly prescribed abx and advised to 'push fluids'.
A/P:
# Hyponatremia, acute on chronic, suspect this is secondary to combination of thiazide diuretic, recent increase in water intake, and SIADH
Sodium level has improved from 121 to 132
Hold HCTZ and would completely discontinue upon discharge.
Cont fluid restrict.
mentation has improved
TSH 2.53, random cortisol level 24
Nephrology on board
# Weakness / Fatigue
# Confusion with likely underlying cognitive impairment vs dementia
Suspicious of underlying dementia diagnosis here - especially with multiple UTI diagnoses for generalized weakness in the past 2 months.
Pt is slow to respond to questions, she is awake, knows the year, but does not know which month we are in.
mentation has improved
Hold further abx for now.�UA from admission is unremarkable.�
Monitor for any specific urinary complaints.
# Hypokalemia
repleted
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
repeat BMP outpt with result to PCP
# Permanent Atrial Fibrillation, rate controlled- Stable.�
Episodic bradycardia noted on tele, hold CAMERA SUPERVISOR Toprol
Continue Digoxin. Digoxin level 0.6
Continue Eliquis for stroke risk reduction.
# DM-II
Glucose elevated.�
Patient not on any DM medications at present.
Cover with SSI as needed.
A1C 8.2%
# Hypothyroidism
TSH at 2.53
Cont Synthroid
# HTN
will start Norvasc low dose 2.5 mg for elevated BP (while off Toprol), dose can be further adjusted based of BP
DVT Prophylaxis:�On Eliquis
Code Status:� Full
PT OT recc SNF
updated on the phone [phone] Wednesday 05/03
calls not answered today
Anticipated Discharge: Today
Subjective/Interval History
-
Date of Service: May 04, 2023
Objective Data
-
Labs:
Laboratory Results
05/04/23
05:34
WBC 9.8
Hgb 13.7
Hct 38.8
Plt Count 275
Sodium 132 L
Potassium 3.6
Chloride 95 L
Carbon Dioxide 32 H
BUN 20 H
Creatinine 0.6
Glucose 201 H
Calcium 9.8
Vital Signs:
Vital Signs
Temp Pulse Resp BP Pulse Ox
36.4 C 86 18 166/94 99
05/04/23 07:15 05/04/23 09:01 05/04/23 07:15 05/04/23 09:01 05/04/23 07:15
I&O
05/03/23 05/04/23 05/05/23
06:59 06:59 06:59
Intake Total 1120 / 1120 600 / 600
Output Total 450 / 450
Balance 670 / 670 600 / 600
Review of Systems
-
All other systems: Reviewed and negative
Physical Exam
-
General: Well Developed, Well Nourished, No Apparent Distress, Comfortable and Conversant; Negative Respiratory Distress
HEENT: Normocephalic, Atraumatic, Nose Appears Normal and Ears Appear Normal; Negative Oxygen
Respiratory: Clear to Auscultation and Non Labored Respirations; Negative Accessory Resp Muscle Use
Cardiac: S1/S2 and Irregular Rhythm
GI: Soft, Nontender, Nondistended and Normal Bowel Sounds
Skin: Warm and Dry
Neuro: Awake and Alert
Psych: Calm
Data Reviewed
-
Labs: Labs Reviewed by me
[2023-05-04] MEDS: KCL 40 MEQ PO (10:23)
[2023-05-04 11:03] LABS: Glucose - Point of Care 265 mg/dl (70-99)
--- NOTE | 2023-05-04 11:20 | W.PN.NEPH.PH ---
Today's Communication / Plan
-
lasix
Assessment/Plan
-
IMP:
Hyponatremia-acute on chr
Weakness / Fatigue
Confusion
Permanent Atrial Fibrillation
DM-II
Hypothyroidism
Mild Hypokalemia
h/o Subdural Hematoma
ASCVD
Pulmonary Hypertension
Plan:
-off HCTZ
-follow BMP
-NaCl
-add lasix
-dc planning
-
-
Date of Service: May 04, 2023
CC / HPI / ROS
-
Chief Complaint:
hyponatremia
History of Present Illness:
sodium better at 132, on salt tablets
BP high
Review of Systems:
no cp or sob
Labs
-
Labs:
WBC 9.8 10^3/uL (4.8-10.8) 05/04/23 05:34
RBC 4.45 10^6/uL (4.20-5.40) 05/04/23 05:34
Hgb 13.7 g/dL (12.0-16.0) 05/04/23 05:34
Hct 38.8 % (37.0-47.0) 05/04/23 05:34
Plt Count 275 10^3/uL (130-400) 05/04/23 05:34
Sodium 132 mmol/L (135-145) L 05/04/23 05:34
Potassium 3.6 mmol/L (3.5-5.1) 05/04/23 05:34
Chloride 95 mmol/L (98-107) L 05/04/23 05:34
Carbon Dioxide 32 mmol/L (22-30) H 05/04/23 05:34
BUN 20 mg/dl (7-17) H 05/04/23 05:34
Creatinine 0.6 mg/dL (0.6-1.0) 05/04/23 05:34
eGFR > 60.00 05/04/23 05:34
Glucose 201 mg/dl (70-99) H 05/04/23 05:34
Calcium 9.8 mg/dl (8.4-10.2) 05/04/23 05:34
Albumin 3.4 g/dl (3.5-5.0) L 05/02/23 01:30
Physical Exam
-
Vital Signs:
Vital Signs
Temp Pulse Resp BP Pulse Ox
97.6 F 86 18 166/94 99
05/04/23 07:15 05/04/23 09:01 05/04/23 07:15 05/04/23 09:01 05/04/23 07:15
Cardiovascular:: Regular rate and rhythm
Respiratory:: Bilateral: CTA
Lung Excursion:: Normal
Abdomen:: Nontender and Soft
Bowel Sounds:: Normal
Extremity Edema:: None: Bilateral:
[2023-05-04 11:27] VITALS: BP 127/78
[2023-05-04] MEDS: NOVOLOG FLEXPEN-LOW RESISTANCE 3 UNITS SC (12:32)
[2023-05-04] MEDS: KCL 20 MEQ PO (12:34)
[2023-05-04] MEDS: LANOXIN 125 MCG PO (12:35)
[2023-05-04] MEDS: LASIX 20 MG PO (12:45)
--- NOTE | 2023-05-04 13:39 | W.DCSUMMARY ---
Discharge Summary
Discharge Data
Date of Admission: 05/02/23
Date of Discharge: 05/04/23
-
Pending Results: No
Hospital Course
Principal Diagnosis:
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
Suspect underlying cognitive impairment versus dementia
Chronic Diagnoses:�
Permanent Atrial Fibrillation, rate controlled
Episodic bradycardia noted on tele,�discontinued Toprol, continue Digoxin and Eliquis for stroke risk reduction.
Type 2 diabetes
Hypothyroidism, on Synthroid
Hypertension
Consultations:�
Nephrology
Procedures:�
None
Clinical course:�
This is a 82-year-old female with past medical history as stated above, who presented with weakness and fatigue, ongoing for the past week or two.�Patient was evaluated in the ED and was noted to have hyponatremia.�
Apparently, patient has been treated for repeated UTI and had been informed to drink a lot of water. She cannot quantify how much water she had been drinking.
Problem 1:
Hyponatremia, acute on chronic, suspect this is secondary to combination of thiazide diuretic, recent increase in water intake, and SIADH
Her sodium level improved from 121 to 132 on the day of discharge.
She has been informed to discontinue HCTZ going forward and to continue fluid restriction at 64 oz a day.
Of note, her TSH and random cortisol levels were within normal limit at 2.53 and 24, respectively.
Her mental status improved during her hospital stay.
Problem 2:
Confusion with likely underlying cognitive impairment vs dementia.
She is slow to respond to questions. She is aware of the year, but does not know the month.
Her UA from admission was unremarkable.�Hence no further antibiotic is needed.
She can follow-up with the PCP for neurocognitive testing outpatient.
Problem 3:
Hypokalemia resolved after repletion.
If likely that her electrolytes disturbance will improve with discontinuation of hydrochlorothiazide.
She can check repeat BMP outpatient with result to her PCP.
As for the rest of her medical problems, they were stable during her hospital stay.
Discharge Plan
-
Patient Disposition: Halfway/SNF
Discharge Diagnosis/Procedures: weakness due to low sodium level; suspect underlying cognitive impairment/dementia; bradycardia with cardiac pauses
Condition: Fair
Diet: As tolerated and Restrict fluids to 64 oz
Activity: As tolerated
Driving Restrictions: No driving
Blood Work: BMP in 1 week, result to your PCP
Stop these medications:: HCTZ (due to low sodium level), metoprolol (due to low heart rate)
Activity Restrictions/Additional Instructions:
You were started with low dose Norvasc for blood pressure control since you were taken off Toprol and HCTZ.
Further dose adjustment of Norvasc per your PCP for blood pressure control.
Referrals:
Rony Castillo MD [Family Provider] - in less than 1 week
Prescriptions:
New
amlodipine 2.5 mg Tablet
2.5 mg PO DAILY Qty: 30 0RF
Continued
famotidine 40 MG tablet
40 mg PO HS
potassium chloride [Klor-Con M20] 20 MEQ tablet,ER particles/crystals
20 meq PO NOON
levothyroxine 50 MCG tablet
50 mcg PO DAILY
PreserVision AREDS-2 1 EACH capsule
1 cap PO BID
digoxin 0.125 MG tablet
0.125 mg PO NOON
lisinopril 40 mg Tablet
40 mg PO DAILY
cholecalciferol (vitamin D3) 50 mcg (2,000 unit) Tablet
50 mcg PO DAILY
Eliquis 5 mg Tablet
5 mg PO BID
Visbiome 112.5 billion cell Capsule
1 cap PO NOON
Discontinued
hydrochlorothiazide 25 MG tablet
25 mg PO DAILY
metoprolol succinate 50 MG tablet extended release 24 hr
50 mg PO BID
ciprofloxacin HCl [Cipro] 500 mg Tablet
500 mg PO BID
Patient Comments:
patient to start on 04/29/23
Discharge Orders:
Discharge Patient (As Directed); Ordered 05/04/23
Ordered By: Anne Prado
--- NOTE | 2023-05-04 14:23 | CM ---
Addendum entered by Giuliana Bush 05/04/23 15:00:
Transport scheduled for 3:30pm. and patient notified.
Addendum entered by Giuliana Bush 05/04/23 14:29:
Insurance auth # is [id number], approved for 9 days from 05/04/23 through to and including 05/12/23. NRD is 05/12/23. Auth is for facility and ambulance transport. Concurrent reviews to be called into [employer]. notified.
Original Note:
Patient has been medically cleared for discharge to [facility] for care home and rehab services. Insurance authorization has been obtained by Jayda in admissions. Transport to be scheduled.
NURSE TO NURSE REPORT # [phone]
FAX # [phone]
[2023-05-04 15:35] VITALS: BP 156/92
== END 2023-05-04 15:47 | DRG 641 ==
LOC: 2 NORTH 03:18
PROVIDERS: Emergency Medicine; ADMITTING PHYSICIAN Hospitalist; ATTENDING PHYSICIAN Internal Medicine; CONSULT PHYSICIAN Internal Medicine; EMERGENCY PHYSICIAN Student in an Organized Health Care Education/Training Program; FAMILY PHYSICIAN Family Medicine
DX: E87.1 Hypo-osmolality and hyponatremia (principal); I48.21 Permanent atrial fibrillation; E22.2 Syndrome of inappropriate secretion of antidiuretic hormone; E86.1 Hypovolemia; E87.6 Hypokalemia; I12.9 Hypertensive chronic kidney disease with stage 1 through stage 4 chronic kidney disease, or unspecified chronic kidney disease; N18.2 Chronic kidney disease, stage 2 (mild); E86.0 Dehydration; E87.3 Alkalosis; E03.9 Hypothyroidism, unspecified; E11.22 Type 2 diabetes mellitus with diabetic chronic kidney disease; E11.36 Type 2 diabetes mellitus with diabetic cataract; T50.2X5A Adverse effect of carbonic-anhydrase inhibitors, benzothiadiazides and other diuretics, initial encounter; Z79.01 Long term (current) use of anticoagulants; I27.20 Pulmonary hypertension, unspecified; F03.90 Unspecified dementia, unspecified severity, without behavioral disturbance, psychotic disturbance, mood disturbance, and anxiety
CPT/HCPCS: 51701; 80048; 80053; 80162; 81003; 82533; 82962; 83036; 83735; 83935; 84132; 84295; 84300; 84443; 84484; 85025; 85027; 87070; 93005; 97162; 97166; 97530; 99285